=== PATIENT | male | born 1955 | race Caucasian/White ===

== ENCOUNTER → 2017-11-24 | Outpatient (REF) | payer BC | LOC: M SFHCLERA 16:15 | DX: E66.9 Obesity, unspecified (principal) ==

== ENCOUNTER → 2018-01-26 | Outpatient (CLI) | payer BC | LOC: M RAD 15:15 | DX: J34.89 Other specified disorders of nose and nasal sinuses (principal) | CPT/HCPCS: 70486 ==

== ENCOUNTER → 2018-02-24 | Outpatient (REF) | payer BC ==
[2018-02-25 11:07] LABS: CHOLESTEROL LEVEL 225 MG/DL (<200); CHOLESTEROL RISK RATIO 4.891 (<5); HDL CHOLESTEROL 46 MG/DL (>40); LDL CHOLESTEROL 123.2 MG/DL (<100); NON-HDL-C 179 MG/DL; TRIGLYCERIDES LEVEL 279 MG/DL (<150)
== END ==
LOC: M LAB REF 16:00
DX: E78.2 Mixed hyperlipidemia (principal)
CPT/HCPCS: 80061

== ENCOUNTER → 2018-05-25 | Outpatient (REF) | payer BC ==
[2018-05-26 15:12] LABS: FERRITIN 66 NG/ML (26-388); IRON (FE) 69 UG/DL (65-175); PERCENT SATURATION 22.3 % (19.7-50.0); TOTAL IRON BINDING CAPACITY 310 UG/DL (250-450)
== END ==
LOC: M LAB REF 13:02
DX: D50.9 Iron deficiency anemia, unspecified (principal)
CPT/HCPCS: 83550

== ENCOUNTER 2019-07-14 07:27 | Day surgery (SDC) | payer BC ==
[~2019-07-14] VITALS: Ht 188 cm; Wt 107.5 kg
[~2019-07-14 07:27] MED LIST: ALLO300T; COLA100C2; COUM1TAB17; Cyclosporine; FURO40TA2 PO; HYDR-3910 PO; JANT6TAB; KEFL500C; LASI40TA; LASI80TA; LISI10TA4; LOSA50TA88 PO; LOVE1INJ; NEORAL; PRAV10TA3 PO; PRED10TA2; PRED20TA; PREDPOW10; PROT1TAB2; RENVELA; SILD100T PO; SODI15SS PO; ULTRTA; VITA400C53 PO; VITA500046 PO; VITA500054 PO; VITA80003 PO; WARF5VL; ZOCO20TA; ZYLO300T6 PO
--- NOTE | 2019-07-14 09:27 | ECGEPIP ---
[facility] Test Date: 2019-07-14 Pat Name: DIYA SYKES Department: Room: - Gender: Male Membership Solicitor: RF : 1955 Requested By: SANTANA ROTHMAN Order Number: [id number] Reading MD: April Soriano Measurements Intervals [place] Rate: 66 P: 25 RI: 196 QRS: -13 QRSD: 102 T: 61 QT: 386 QTc: 407 Interpretive Statements SINUS RHYTHM NO PRIOR BORDERLINE VOLT LIMB LEADS Electronically Signed on 07-14-2019 9:27:19 EDT by April Soriano
[2019-07-14] MEDS ORDERED: BUPIVACAINE HCL 0.25% 30 ML VIAL As Ordered ONE (10:08)
[2019-07-14] MEDS ORDERED: MIDAZOLAM INJ 2 MG/2 ML VIAL (J2250) As Ordered ONE (10:59)
[2019-07-14] MEDS ORDERED: ONDANSETRON 4MG/2ML VIAL (J2405) As Ordered ONE (10:59)
[2019-07-14] MEDS ORDERED: LIDOCAINE 2% INJ 100 MG/5 ML SDV (FOR ANES.) As Ordered ONE (10:59)
[2019-07-14] MEDS ORDERED: ePHEDrine SULFATE 25 MG/5 ML(5MG/ML) SYRINGE As Ordered ONE (10:59)
[2019-07-14] MEDS ORDERED: ROCURONIUM BROMIDE 50 MG/5 ML VIAL As Ordered ONE ×2 (10:59→11:45)
[2019-07-14] MEDS ORDERED: fentaNYL 250 MCG/5 ML INJECTION (J3010) As Ordered ONE (10:59)
[2019-07-14] MEDS ORDERED: PROPOFOL 200 MG/20 ML VIAL As Ordered ONE (10:59)
[2019-07-14] MEDS ORDERED: PHENYLephrine HCL 500 MCG/5 ML (100MCG/ML) SYRINGE (J2370) As Ordered ONE (10:59)
[2019-07-14] MEDS ORDERED: SUGAMMADEX SODIUM 500 MG/5 ML VIAL (BRIDION) As Ordered ONE (11:00)
[2019-07-14] MEDS ORDERED: ACETAMINOPHEN 1000MG 100ML IV BTL (OFIRMEV) (J0131 PER 10MG) As Ordered ONE (11:10)
[2019-07-14] MEDS ORDERED: fentaNYL 100 MCG/2 ML INJECTION (J3010) As Ordered ONE (12:01)
[2019-07-14] MEDS ORDERED: NORC1TAB7 PO (13:05)
[2019-07-14] MEDS ORDERED: NORCO, ANEXSIA 5/325MG TABLET (HYDROcodone/ACETAMINOPHEN) PO PRN (13:30)
[2019-07-14] MEDS ORDERED: LR 1,000 ML IV SCH (13:30)
[2019-07-14] MEDS ORDERED: ONDANSETRON 4MG/2ML VIAL (J2405) IV PRN (13:30)
[2019-07-14] MEDS ORDERED: oxyCODONE 5MG TAB PO PRN (13:30)
[2019-07-14] MEDS ORDERED: ACETAMINOPHEN TAB 650MG DOSE (2X325MG) PO PRN (13:30)
[2019-07-14] MEDS ORDERED: fentaNYL 100 MCG/2 ML INJECTION (J3010) IV PRN (13:30)
[2019-07-14 14:20] VITALS: BP 156/87
--- NOTE | 2019-07-14 23:54 | RO ---
DATE OF PROCEDURE: 07/14/2019 PREOPERATIVE DIAGNOSIS: Left inguinal hernia and possible right inguinal hernia. POSTOPERATIVE DIAGNOSIS: Left inguinal hernia. PROCEDURE PERFORMED: Robotic-assisted laparoscopic left inguinal herniorrhaphy with mesh. SURGEON: Ariel Pitts MD TOOL GRINDING MACHINE OPERATOR: CECIL Zimmerman who was essential to the procedure, in placement of trocars, management of the robotic instruments with instrument exchanges, passing of sutures and closing of the wounds. ANESTHESIA: General. INDICATIONS FOR PROCEDURE: The patient is a 64-year-old man who had noticed a bulge in the left inguinal area. Examination confirmed a reducible left inguinal hernia. There was also a suggestion of a possible small right inguinal hernia, and he is now for a robotic-assisted laparoscopic left inguinal hernia and possible right inguinal hernia depending on the findings. DESCRIPTION OF PROCEDURE: The patient was brought to the operating room and placed supine on the operating table. He was placed under general endotracheal anesthesia. The patient's abdomen was prepped and draped in a sterile fashion. 0.25% Marcaine was infiltrated at each of the trocar sites prior to insertion. A short left upper quadrant incision was made, and a Veress needle was inserted. After a positive hanging drop test, the abdomen was inflated with carbon dioxide. An 8 mm see-through robotic port was placed over 5 mm scope, and this was advanced through the abdominal wall without difficulty. Initial examination showed no evidence of any significant adhesions within the abdomen. There was no evidence of Veress needle injury. Two additional 8 mm ports were then placed. One of these was placed along the midline several centimeters above the umbilicus and the third was placed in the right upper quadrant at the same level. The patient was tilted to approximately a 15 degree Trendelenburg position. The [employer] XI patient cart was brought into position, and the endoscope port was docked. Targeting took place, and the additional ports were then docked to the robotic arms. I then moved to the control console to proceed with the operation. Inspection in the left inguinal area revealed a large left inguinal hernia. There were a few adhesions of the sigmoid colon right at the opening of the inguinal hernia defect and to the peritoneum just posterior to this. Inspection on the right showed no evidence of a hernia sac. Attention was therefore turned just to the left side. A peritoneal flap was obtained by making an arcuate incision across the left anterior abdominal wall above the level of the hernia defect. The flap was developed extending from superior to inferior clearing the inner aspect of the abdominal wall. The inguinal floor was visualized from within the abdomen. The hernia sac was nicely mobilized and reduced. He was also found to have a moderately large herniation of preperitoneal fat and this was also withdrawn and actually excised and set aside for later removal. Once the flap had been developed and the hernia sac dissected from the spermatic cord, a left-sided Bard 3DMax Light Mesh, large in size, was selected. This was reference code number [id number] and lot number [id number]. This was placed within the abdomen, and a #2-0 Vicryl suture was used to tack this to the fascia of Anderson's ligament. A single suture was also placed at the superior aspect of the mesh to fix this at its superior extent. The mesh appeared to lie nicely across the area of the hernia defect. The peritoneal flap was then closed with a running suture of a #2-0 V-Loc stitch. This nicely closed the peritoneum and completely covered the mesh. I would note that the abdominal pressure had been reduced to 8 mmHg at the time of the mesh placement and peritoneal closure. The preperitoneal fat that had been excised was placed in an Endopouch. The robotic instruments were then removed and the robot undocked. I then returned to the patient's side. The neck of the Endopouch was pulled up through the abdominal wall, and the fatty tissue was removed using a Vanessa clamp. This was sent for permanent pathology. The abdominal incisions were closed with buried sutures of Vicryl. Additional local anesthesia was infiltrated. Light dressings were applied. The patient was awakened in the operating room, extubated and moved to the recovery room in stable condition. SHANTELL
== END 2019-07-14 14:56 | disposition home or self-care (01) ==
LOC: M SDC 07:27
PROVIDERS: ATTEND Surgery
DX: K40.90 Unilateral inguinal hernia, without obstruction or gangrene, not specified as recurrent (principal); N18.4 Chronic kidney disease, stage 4 (severe); I12.9 Hypertensive chronic kidney disease with stage 1 through stage 4 chronic kidney disease, or unspecified chronic kidney disease; E78.5 Hyperlipidemia, unspecified; M10.9 Gout, unspecified; K57.92 Diverticulitis of intestine, part unspecified, without perforation or abscess without bleeding; Z88.8 Allergy status to other drugs, medicaments and biological substances; Z79.899 Other long term (current) drug therapy
CPT/HCPCS: 49650; 88302; 93005; C1781; J0131; J2250; J2370; J2405; J3010

== ENCOUNTER → 2019-10-11 | Outpatient (CLI) | payer BC ==
[~2019-10-11] MED LIST changes: +NORC1TAB7 PO
[2019-10-11 16:53] LABS: MAGNESIUM LEVEL 2.5 MG/DL (1.8-2.4)
== END ==
LOC: M LRY 10:20
PROVIDERS: ATTEND Nurse Practitioner Family
DX: R00.2 Palpitations (principal)

== ENCOUNTER → 2019-10-25 | Outpatient (REF) | payer BC ==
[2019-10-25 18:44] LABS: CHOLESTEROL RISK RATIO 3.734 (<5)
== END ==
LOC: M LAB REF 17:46
PROVIDERS: ATTEND Internal Medicine Nephrology
DX: E78.2 Mixed hyperlipidemia (principal)

== ENCOUNTER 2019-12-06 09:44 | Day surgery (SDC) | payer BC ==
[~2019-12-06] VITALS: Ht 188 cm; Wt 103.9 kg
[~2019-12-06 09:44] MED LIST changes: +ATEN25TA PO; +NS 1,000 ML IV ONE; +VALS1TAB67 PO; +VITA30004 PO
[2019-12-06] MEDS ORDERED: propofoL 200 MG/20 ML VIAL As Ordered ONE ×2 (11:31→11:56)
--- NOTE | 2019-12-06 12:08 | ROOR ---
Patient Name: River Rodriguez Procedure Date: 12/06/2019 11:30 AM Date of : 1955 Age: 64 Room: [facility] Gender: Male Note Status: Finalized Procedure: Colonoscopy Indications: High risk colon cancer surveillance: Personal history of colonic polyps, Last colonoscopy: October 2015 Providers: Ariel Pitts MD Referring MD: [facility], Admin. Requesting Provider: Medicines: Monitored Anesthesia Care Complications: No immediate complications. Procedure: Pre-Anesthesia Assessment: - Prior to the procedure, a History and Physical was performed, and patient medications and allergies were reviewed. The patient is competent. The risks and benefits of the procedure and the sedation options and risks were discussed with the patient. All questions were answered and informed consent was obtained. Patient identification and proposed procedure were verified by the physician, the nurse and the anesthesiologist in the procedure room. Mental Status Examination: alert and oriented. Airway Examination: normal oropharyngeal airway and neck mobility. Prophylactic Antibiotics: The patient does not require prophylactic antibiotics. Prior Anticoagulants: The patient has taken no previous anticoagulant or antiplatelet agents. ASA Grade Assessment: II - A patient with mild systemic disease. After reviewing the risks and benefits, the patient was deemed in satisfactory condition to undergo the procedure. The anesthesia plan was to use monitored anesthesia care (MAC). Immediately prior to administration of medications, the patient was re-assessed for adequacy to receive sedatives. The heart rate, respiratory rate, oxygen saturations, blood pressure, adequacy of pulmonary ventilation, and response to care were monitored throughout the procedure. The physical status of the patient was re-assessed after the procedure. The Colonoscope was introduced through the anus and advanced to the cecum, identified by appendiceal orifice and ileocecal valve. The colonoscopy was performed without difficulty. The patient tolerated the procedure well. The quality of the bowel preparation was excellent. Findings: Hemorrhoids were found on perianal exam. Many small and large-mouthed diverticula were found in the entire colon. A 2 mm polyp was found in the cecum. The polyp was sessile. The polyp was removed with a jumbo cold forceps. Resection and retrieval were complete. Estimated blood loss was minimal. A 6 mm polyp was found in the proximal descending colon. The polyp was pedunculated. The polyp was removed with a hot snare. Resection and retrieval were complete. Estimated blood loss: none. Impression: - Hemorrhoids found on perianal exam. - Diverticulosis in the entire examined colon. - One 2 mm polyp in the cecum, removed with a jumbo cold forceps. Resected and retrieved. - One 6 mm polyp in the proximal descending colon, removed with a hot snare. Resected and retrieved. Recommendation: - Discharge patient to home. - Resume previous diet. - Continue present medications. - Await pathology results. - If the pathology report reveals adenomatous tissue, then repeat the colonoscopy for surveillance in 5 years. Ariel Pitts MD Ariel Pitts MD 12/06/2019 12:08:20 PM Electronically signed by Ariel Pitts MD Number of Addenda: 0 Note Initiated On: 12/06/2019 11:30 AM Estimated Blood Loss: Estimated blood loss was minimal.
[2019-12-06 12:25] VITALS: BP 113/74
== END 2019-12-06 13:20 | disposition home or self-care (01) ==
LOC: M OPP 09:44
PROVIDERS: ATTEND Surgery
DX: Z12.11 Encounter for screening for malignant neoplasm of colon (principal); Z86.010 Personal history of colon polyps; K64.9 Unspecified hemorrhoids; D12.0 Benign neoplasm of cecum; D12.4 Benign neoplasm of descending colon; K57.30 Diverticulosis of large intestine without perforation or abscess without bleeding; Z88.8 Allergy status to other drugs, medicaments and biological substances

== ENCOUNTER → 2020-01-10 | Outpatient (CLI) | payer BC ==
[~2020-01-10] MED LIST changes: -NS 1,000 ML IV ONE
== END ==
LOC: M LABSMTC 10:26
PROVIDERS: ATTEND Family Medicine
DX: Z11.59 Encounter for screening for other viral diseases (principal); Z20.818 Contact with and (suspected) exposure to other bacterial communicable diseases

== ENCOUNTER → 2020-03-07 | Outpatient (CLI) | payer BC | LOC: M LABSMTC 12:20 | PROVIDERS: ATTEND Family Medicine | DX: Z03.818 Encounter for observation for suspected exposure to other biological agents ruled out (principal); Z11.59 Encounter for screening for other viral diseases | CPT/HCPCS: C9803; U0003 ==

== ENCOUNTER → 2020-08-02 | Outpatient (CLI) | payer BC ==
[~2020-08-02] MED LIST changes: +MULTCAP PO; +OXYC1TAB23 PO; +SILD100T7 PO
== END ==
LOC: M LABSMTC 09:22
PROVIDERS: ATTEND Anesthesiology
DX: Z11.59 Encounter for screening for other viral diseases (principal)

== ENCOUNTER 2020-08-07 07:11 | Day surgery (SDC) | payer BC ==
[~2020-08-07] VITALS: Ht 188 cm; Wt 103.4 kg
[~2020-08-07 07:11] MED LIST changes: +LIDOCAINE 1% MDV 20ML VIAL SQ PRN; +LR 1,000 ML IV ONE; -OXYC1TAB23 PO
[2020-08-07] MEDS ORDERED: BUPIVACAINE HCL 0.5% 30 ML VIAL As Ordered ONE (07:49)
[2020-08-07] MEDS ORDERED: fentaNYL 100 MCG/2 ML INJECTION (J3010) As Ordered ONE (08:09)
[2020-08-07] MEDS ORDERED: propofoL 200 MG/20 ML VIAL As Ordered ONE ×2 (08:09→09:13)
[2020-08-07] MEDS ORDERED: LIDOCAINE 2% 100MG/5ML SDV (FOR ANES.) As Ordered ONE (08:09)
[2020-08-07] MEDS ORDERED: MIDAZOLAM INJ 2MG/2ML VIAL (J2250 PER 1MG) As Ordered ONE (08:09)
[2020-08-07] MEDS ORDERED: ONDANSETRON 4MG/2ML VIAL As Ordered ONE (09:15)
[2020-08-07] MEDS ORDERED: BUPIVACAINE LIPOSOME/PF 1.3% 20ML VIAL (13.3MG/ML)(EXPAREL)(C9290 PER1MG) As Ordered ONE (09:17)
[2020-08-07] MEDS ORDERED: BUPIVACAINE HCL 0.5% 10ML VIAL As Ordered ONE (09:17)
[2020-08-07] MEDS ORDERED: OXYMETAZOLINE 0.05% NASAL SPRAY (AFRIN) As Ordered ONE (10:08)
[2020-08-07] MEDS ORDERED: OXYC1TAB23 PO (11:05)
[2020-08-07] MEDS ORDERED: IBUPROFEN 600MG TAB PO PRN (11:15)
[2020-08-07] MEDS ORDERED: LR 1,000 ML IV SCH (11:15)
[2020-08-07] MEDS ORDERED: fentaNYL 100 MCG/2 ML INJECTION (J3010) IV PRN (11:15)
[2020-08-07] MEDS ORDERED: ONDANSETRON 4MG/2ML VIAL IV PRN (11:15)
[2020-08-07] MEDS ORDERED: oxyCODONE 5MG TAB PO PRN (11:15)
[2020-08-07] MEDS ORDERED: ACETAMINOPHEN TAB 650MG DOSE (2X325MG) PO SCH (11:15)
[2020-08-07] MEDS ORDERED: PERCOCET 5MG/325MG TAB PO PRN (11:15)
[2020-08-07 12:25] VITALS: BP 145/93
--- NOTE | 2020-08-07 18:03 | ECGEPIP ---
[facility] Test Date: 2020-08-07 Pat Name: DIYA SYKES Department: Room: - Gender: Male Physician Practice Market Manager: [facility] : 1955 Requested By: Raoul Luther Order Number: [id number] Reading MD: Carlos Park Measurements Intervals [place] Rate: 73 P: 69 NH: 178 QRS: -16 QRSD: 111 T: 56 QT: 381 QTc: 422 Interpretive Statements Normal sinus rhythm with PVCs Leftward axis Except for new ventricular ectopy, tracing is unchanged from 07/14/2019 Electronically Signed on 08-07-2020 18:03:16 EST by Carlos Park
== END 2020-08-07 12:55 | disposition home or self-care (01) ==
LOC: M SDC 07:11
PROVIDERS: ATTEND Surgery
DX: K64.3 Fourth degree hemorrhoids (principal); I10 Essential (primary) hypertension; E78.5 Hyperlipidemia, unspecified; K57.92 Diverticulitis of intestine, part unspecified, without perforation or abscess without bleeding; Z79.899 Other long term (current) drug therapy
CPT/HCPCS: 46255; 88304; 93005; C9290; J2250; J2405; J3010

== ENCOUNTER → 2021-06-21 | Outpatient (CLI) | payer BC ==
[~2021-06-21] MED LIST changes: -LIDOCAINE 1% MDV 20ML VIAL SQ PRN; -LR 1,000 ML IV ONE; +OXYC1TAB23 PO
--- NOTE | 2021-06-21 09:51 | REP ---
INDICATION: R05 PRODUCTIVE COUGH. COMPARISON: PA and lateral chest, 03/21/2010. TECHNIQUE: Upright PA and lateral chest images were obtained. FINDINGS: There is stable apical pleuroparenchymal scarring bilaterally. There is minimal airspace disease in the lingula consistent with atelectasis or pneumonia. The lungs are otherwise clear. There are no pleural effusions. The heart borders mediastinum and pulmonary vascular pattern are normal. The upper abdominal bowel gas pattern is normal. There is mild levoscoliosis of the upper thoracic spine. IMPRESSION: Minimal atelectasis or pneumonia in the lingula. <Electronically signed by Bill Pitts > 06/21/21 [id number]
== END ==
LOC: M CLY 09:18
PROVIDERS: ATTEND Family Medicine
DX: R05 Cough (principal)

== ENCOUNTER → 2021-07-11 | Outpatient (CLI) | payer BC ==
[~2021-07-11] MED LIST changes: +ALLO10TA PO; +FLUTISP; +VALS1TAB66 PO; +VITMTA PO
== END ==
LOC: M LABSMTC 09:32
PROVIDERS: ATTEND Anesthesiology
DX: Z01.812 Encounter for preprocedural laboratory examination (principal); Z20.822 Contact with and (suspected) exposure to COVID-19

== ENCOUNTER → 2021-08-03 | Outpatient (CLI) | payer BC | LOC: M LABSMTC 09:45 | PROVIDERS: ATTEND Anesthesiology | DX: Z01.812 Encounter for preprocedural laboratory examination (principal); Z20.822 Contact with and (suspected) exposure to COVID-19 ==

== ENCOUNTER 2021-08-08 11:30 | Day surgery (SDC) | payer BC ==
[~2021-08-08] VITALS: Ht 188 cm; Wt 106.8 kg
[~2021-08-08 11:30] MED LIST changes: +LIDOCAINE 2% 100MG/5ML SDV (FOR ANES.) As Ordered ONE; +NS 1,000 ML IV ONE; +propofoL 200 MG/20 ML VIAL As Ordered ONE
[2021-08-08] MEDS ORDERED: fentaNYL 100 MCG/2 ML INJECTION (J3010) As Ordered ONE (13:37)
[2021-08-08] MEDS ORDERED: propofoL 200 MG/20 ML VIAL As Ordered ONE (13:55)
--- NOTE | 2021-08-08 14:12 | ROOR ---
Patient Name: River Rodriguez Procedure Date: 08/08/2021 1:31 PM Date of : 1955 Age: 66 Room: [facility] Gender: Male Note Status: Finalized Procedure: Upper GI endoscopy Indications: Dysphagia Providers: Ariel Pitts MD Referring MD: Demond Dela Cruz DO Requesting Provider: Medicines: Monitored Anesthesia Care Complications: No immediate complications. Procedure: Pre-Anesthesia Assessment: - Prior to the procedure, a History and Physical was performed, and patient medications and allergies were reviewed. The patient is competent. The risks and benefits of the procedure and the sedation options and risks were discussed with the patient. All questions were answered and informed consent was obtained. Patient identification and proposed procedure were verified by the physician, the nurse and the deckhand oyster dredge in the procedure room. Mental Status Examination: alert and oriented. Airway Examination: normal oropharyngeal airway and neck mobility. Prophylactic Antibiotics: The patient does not require prophylactic antibiotics. Prior Anticoagulants: The patient has taken no previous anticoagulant or antiplatelet agents. ASA Grade Assessment: II - A patient with mild systemic disease. After reviewing the risks and benefits, the patient was deemed in satisfactory condition to undergo the procedure. The anesthesia plan was to use monitored anesthesia care (MAC). Immediately prior to administration of medications, the patient was re-assessed for adequacy to receive sedatives. The heart rate, respiratory rate, oxygen saturations, blood pressure, adequacy of pulmonary ventilation, and response to care were monitored throughout the procedure. The physical status of the patient was re-assessed after the procedure. The Endoscope was introduced through the mouth, and advanced to the second part of duodenum. The upper GI endoscopy was accomplished without difficulty. The patient tolerated the procedure well. Findings: One benign-appearing, intrinsic moderate stenosis was found 40 cm from the incisors. This stenosis measured 1.2 cm (inner diameter) x less than one cm (in length). The stenosis was traversed. A TTS dilator was passed through the scope. Dilation with a 15-16.5-18 mm x 8 cm CRE balloon dilator was performed to 16.5 mm. The dilation site was examined following endoscope reinsertion and showed moderate mucosal disruption. Estimated blood loss was minimal. A small hiatal hernia was present. The exam of the stomach was otherwise normal. Patchy moderately erythematous mucosa without active bleeding and with no stigmata of bleeding was found in the first portion of the duodenum. The second portion of the duodenum was normal. Impression: - Benign-appearing esophageal stenosis. Dilated. - Small hiatal hernia. - Erythematous duodenopathy. - Normal second portion of the duodenum. - No specimens collected. Recommendation: - Discharge patient to home. - Resume previous diet. - Continue present medications. - Return to endoscopist as previously scheduled. Procedure Code(s): --- Professional --- 53569, Esophagogastroduodenoscopy, flexible, transoral; with transendoscopic balloon dilation of esophagus (less than 30 mm diameter) Diagnosis Code(s): --- Professional --- K22.2, Esophageal obstruction K44.9, Diaphragmatic hernia without obstruction or gangrene K31.89, Other diseases of stomach and duodenum R13.10, Dysphagia, unspecified CPT copyright 2019 [employer] [place] [employer]. All rights reserved. The codes documented in this report are preliminary and upon curriculum developer review may be revised to meet current compliance requirements. Ariel Pitts MD Ariel Pitts MD 08/08/2021 2:11:41 PM Electronically signed by Ariel Pitts MD Number of Addenda: 0 Note Initiated On: 08/08/2021 1:31 PM Estimated Blood Loss: Estimated blood loss was minimal.
[2021-08-08 14:33] VITALS: BP 129/83
[2021-08-08] MEDS ORDERED: OMEP40CA4 PO (14:34)
== END 2021-08-08 14:40 | disposition home or self-care (01) ==
LOC: M OPP 11:30
PROVIDERS: ATTEND Surgery
DX: K22.2 Esophageal obstruction (principal); K44.9 Diaphragmatic hernia without obstruction or gangrene; K31.89 Other diseases of stomach and duodenum; R13.10 Dysphagia, unspecified; Z79.899 Other long term (current) drug therapy; Z88.8 Allergy status to other drugs, medicaments and biological substances; Z95.828 Presence of other vascular implants and grafts; Z86.718 Personal history of other venous thrombosis and embolism
CPT/HCPCS: 43249; J3010

== ENCOUNTER → 2022-11-17 | Outpatient (REF) | payer MEDICARE, BC ==
[~2022-11-17] MED LIST changes: -LIDOCAINE 2% 100MG/5ML SDV (FOR ANES.) As Ordered ONE; +LOSA50TA28 PO; -LOSA50TA88 PO; -NS 1,000 ML IV ONE; +OMEP40CA4 PO; -propofoL 200 MG/20 ML VIAL As Ordered ONE
[2022-11-17 17:57] LABS: PERCENT SATURATION 40.5 % (19.7-50.0)
[2022-11-17 17:59] LABS: FERRITIN 33.9 NG/ML (10.5-307.3)
== END ==
LOC: M LAB REF 16:14
PROVIDERS: ATTEND Internal Medicine
DX: D64.9 Anemia, unspecified (principal)

== ENCOUNTER → 2023-11-16 | Outpatient (REF) | payer MEDICARE ==
[~2023-11-16] MED LIST changes: -HYDR-3910 PO; +HYDR25TA87 PO
== END ==
LOC: M LAB REF 11:58
PROVIDERS: ATTEND Internal Medicine
DX: M1A.30X0 Chronic gout due to renal impairment, unspecified site, without tophus (tophi) (principal)

== ENCOUNTER → 2024-02-19 | Outpatient (CLI) | payer MEDICARE | LOC: M EKG 10:09 | PROVIDERS: ATTEND Internal Medicine Cardiovascular Disease | DX: I49.3 Ventricular premature depolarization (principal); I44.0 Atrioventricular block, first degree ==

== ENCOUNTER → 2024-02-25 | Outpatient (CLI) | payer MEDICARE | LOC: M PLAIMG 13:47 | PROVIDERS: ATTEND Internal Medicine Cardiovascular Disease | DX: I49.3 Ventricular premature depolarization (principal) ==

== ENCOUNTER → 2024-12-13 | Outpatient (REF) | payer MEDICARE | LOC: M LAB REF 12:13 | PROVIDERS: ATTEND Internal Medicine | DX: E78.5 Hyperlipidemia, unspecified (principal); Z82.49 Family history of ischemic heart disease and other diseases of the circulatory system ==

== ENCOUNTER → 2024-12-30 | Outpatient (CLI) | payer MEDICARE | LOC: M LAB 10:39 | PROVIDERS: ATTEND Nurse Practitioner Acute Care | DX: R07.89 Other chest pain (principal) ==